=== PATIENT | female | born 1930 | race Hispanic/Latino ===

== ENCOUNTER 2016-12-05 09:19 | Day surgery (SDC) | payer MEDICARE, BC ==
[2016-12-03 10:52] VITALS: BMI 29.1
[2016-12-05 09:54] LABS: ADD MANUAL DIFF? NO
[2016-12-05 10:02] LABS: BASO # 0.04 K/mm3 (0.0-2.0); BASO % 0.6 % (0.0-3.0); EOS # 0.1 (0.0-0.7); GRAN # 5.31 (1.4-6.5); GRAN % 75.8 % (50.0-68.0); HEMATOCRIT 38.7 % (36.0-48.0); LYMPH # 1.1 (1.2-3.4); LYMPH % 15.5 % (22.0-35.0); MEAN CELL VOLUME 90.6 fL (80.0-105.0); MEAN CORPUSCULAR HEMOGLOBIN 28.6 pg (25.0-35.0); MEAN CORPUSCULAR HGB CONC 31.5 g/dl (31.0-37.0); MEAN PLATELET VOLUME 9.2 fl (7.0-11.0); MONO # 0.4 (0.1-0.6); MONO % 6.1 % (1.0-6.0); PLATELET COUNT 353 10^3/uL (120.0-450.0)
[2016-12-05 10:04] VITALS: RESP 18
[2016-12-05 10:05] LABS: BLOOD UREA NITROGEN 16 mg/dL (7-21); CALCIUM 9.5 mg/dL (8.4-10.5); CARBON DIOXIDE 29 mmol/L (21-33); CHLORIDE 102 mmol/L (98-107); GFR AFRICAN-AMERICAN > 60; GLUCOSE,RANDOM 103 mg/dL (70-110); SODIUM 138 mmol/L (132-148)
[2016-12-05 10:10] LABS: INR 0.97 (0.93-1.08)
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
[2016-12-05] MEDS ORDERED: Midazolam 2 MG/2 ML VIAL ONE (10:45)
[2016-12-05] MEDS ORDERED: Oxycodone/Acetaminophen 5/325 mg Tab PO PRN (12:17)
[2016-12-05] MEDS ORDERED: Sodium Chloride 0.45% 1,000 ML IV SCH (12:30)
[2016-12-05 13:26] VITALS: TEMP 97.8
--- NOTE | 2016-12-05 14:20 | RAD ---
HISTORY: lt lung bx COMPARISON: No prior. FINDINGS: LUNGS: There are chronic changes in both lungs. There is confluent airspace disease in both lower lobes. PLEURA: No significant pleural effusion identified, no pneumothorax apparent. CARDIOVASCULAR: There is mild cardiomegaly. Atherosclerotic aortic arch calcifications are present. . OSSEOUS STRUCTURES: No significant abnormalities. VISUALIZED UPPER ABDOMEN: Normal. OTHER FINDINGS: None. IMPRESSION: Confluent airspace disease in both lower lobes. No pneumothorax.
[2016-12-05 15:54] VITALS: BP 131/74; PULSE 84; O2SAT 95
--- NOTE | 2016-12-05 22:02 | CT ---
PROCEDURE: CT guided left lower lobe lung biopsy. HISTORY: History gastric CA. Multiple pulmonary opacities suggestive of metastatic disease. PHYSICIAN(S): Derick Michelle MD. TECHNIQUE: The relative risks and indications of the procedure were explained to the patient and consent obtained. The patient was placed in a right decubitus position on the CT scanner and preliminary images through the lung bases obtained. Conscious sedation and monitoring were provided throughout the procedure by a nurse. There is a 2.5 cm related mass in the left lower lobe posteriorly.. A left lateral approach was selected and the area prepped and draped in the usual sterile fashion. 1% Xylocaine was used to anesthetize the skin and soft tissues. A 19 gauge guiding needle was advanced into the 2.5 cm left lower lobe lung nodule. Its position was confirmed with CT. Using coaxial technique, multiple core biopsies were obtained. The postprocedure images show no evidence of large pneumothorax or significant hemorrhage.. IMPRESSION: 1. CT-guided left lower lobe lung biopsy as described above.
== END 2016-12-05 16:20 | disposition home or self-care (01) ==
LOC: SDS 09:19
PROVIDERS: ATTEND Radiology Vascular & Interventional Radiology
DX: J98.4 Other disorders of lung (principal)
CPT/HCPCS: 32405; 36415; 71010; 77012; 80048; 85025; 85610; 85730; 88305; J2250; J2405; J3010; J7030

== ENCOUNTER 2018-09-13 15:20 | Emergency (ER) | payer MEDICARE, BC ==
[2018-09-13 15:20] VITALS: BMI 29.1
[2018-09-13] MEDS ORDERED: Oxycodone/Acetaminophen 5/325 mg Tab PO STA (17:08)
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
[2018-09-13 21:32] VITALS: BP 153/73; PULSE 89; RESP 18; TEMP 97.7; O2SAT 100
--- NOTE | 2018-09-14 08:56 | CT ---
Date of service: 09/13/2018 PROCEDURE: CT Chest without contrast HISTORY: fall, rib pain COMPARISON: Comparison is made to the previous study dated 08/08/2013 TECHNIQUE: Contiguous axial images were obtained through the chest without intravenous contrast enhancement. Sagittal and coronal reconstructions were performed. Radiation dose: Total exam DLP = 285.76 mGy-cm. This CT exam was performed using one or more of the following dose reduction techniques: Automated exposure control, adjustment of the mA and/or kV according to patient size, and/or use of iterative reconstruction technique. FINDINGS: LUNGS: There are diffuse moderate emphysematous changes noted. Interval appearance of 9 millimeter noncalcified nodule at the right lung upper lobe. There is 5 millimeter noncalcified nodule at the inferior aspect of the right lung upper lobe image 61. There is focal linear opacities noted at the left lung upper lobe associated with focal bronchiectasis may represent scar tissue and atelectasis. MEDIASTINUM: The thoracic aorta is ectatic and tortuous contains foci of atherosclerotic calcification normal sized heart. Main pulmonary artery unremarkable. No vascular congestion. No lymphadenopathy. Moderate atherosclerotic disease noted. There is small to moderate size hiatus hernia noted. Mild diffuse esophageal mucosal thickening is also noted. PLEURA: No pleural fluid. No pneumothorax. BONES: There is a mildly displaced fracture at the right 10th rib laterally. Degenerative changes are again noted in the thoracic spine. Diffuse osteopenia/osteoporosis noted. Multiple mild compression deformities in the thoracic vertebrae. UPPER ABDOMEN: No evidence of acute pathology in the visualized portion of the upper abdomen. OTHER FINDINGS: None. IMPRESSION: Acute mildly displaced fracture in the lateral aspect of the right 10th rib. Interval appearance of noncalcified nodules in the right lung upper lobe. Three months follow-up reassessment is recommended. Moderate emphysematous changes. Focal opacity and bronchiectasis noted at the left lung. Preliminary report was submitted by [facility]. Preliminary report was submitted by [facility].
== END 2018-09-13 21:31 | disposition home or self-care (01) ==
LOC: ED 15:20
DX: S20.211A Contusion of right front wall of thorax, initial encounter (principal); W18.2XXA Fall in (into) shower or empty bathtub, initial encounter; Y92.002 Bathroom of unspecified non-institutional (private) residence as the place of occurrence of the external cause; Y93.E1 Activity, personal bathing and showering; I10 Essential (primary) hypertension

== ENCOUNTER 2018-10-01 12:06 | Outpatient (CLI) | payer MEDICARE, BC | END 2018-10-01 12:07 | disposition home or self-care (01) | LOC: RAD 12:06 ==